=== PATIENT | female | born 1995 | race Caucasian/White ===

== ENCOUNTER 2017-02-15 06:55 | Inpatient (IN) | payer OTHER ==
[2017-02-15] MEDS: RINGER'S SOLUTION,LACTATED 1,000 ML IV PRN ×2 (08:09→09:16)
[2017-02-15] MEDS ORDERED: RINGER'S SOLUTION,LACTATED 1,000 ML IV ONE ×2 (10:10→11:30)
[2017-02-15] MEDS ORDERED: OXYTOCIN 20 UNITS in RINGER'S SOLUTION,LACTATED 1,000 ML IV ONE (10:30)
[2017-02-15] MEDS ORDERED: ceFAZolin SODIUM 3 GM in DEXTROSE 5 % IN WATER 100 ML IV ONE ×2 (10:30)
[2017-02-15] MEDS ORDERED: BISACODYL 10 MG SUPP.RECT RC PRN (11:47)
[2017-02-15] MEDS ORDERED: KETOROLAC TROMETHAMINE 30 MG/ML VIAL IV PRN (11:47)
[2017-02-15] MEDS ORDERED: oxyCODONE HCL/ACETAMINOPHEN 1 TAB TABLET PO PRN (11:47)
[2017-02-15] MEDS ORDERED: SIMETHICONE 80 MG TAB.CHEW PO PRN (11:47)
[2017-02-15] MEDS ORDERED: ONDANSETRON HCL/PF 2 MG/ML VIAL IV PRN (11:47)
[2017-02-15] MEDS ORDERED: SENNOSIDES 8.6 MG TABLET PO PRN (11:47)
--- NOTE | 2017-02-15 11:53 | OR ---
History for MU Definition: * The number of deliveries resulting in a live the patient experienced prior to current hospitalization * The previous delivery of live twins or any live multiple gestation is considered one live event. *If primagravida or nulliparous is documented select zero for the number of previous live births. Live Events: 1
--- NOTE | 2017-02-15 11:53 | OR ---
Operative Report - Dictated Report Narrative: Operative report: 02/15/2017 Preoperative diagnosis: Prior , 39.0 weeks, obesity, bipolar, OCD Postoperative diagnosis: Same Procedure: Repeat low-transverse section with vacuum assistance Surgeon: Marisol Ryan D.O. Upper Marker: OR staff Anesthesia: Spinal IV fluids: 1600 Milliliters Urine output: 70 Milliliters EBL: 400 Milliliters Findings: Normal-appearing uterus, tubes, and ovaries, female in cephalic presentation, Apgars of 8 and 9, 7 lbs. 1 oz. Drains: Beckford catheter to gravity Pathology: None Complications: None Condition: Stable The patient was taken to the operating room with IV fluids running and Beckford catheter in place. She was placed in the dorsal supine position with a leftward tilt. She was prepped and draped in the normal sterile fashion. A Pfannenstiel skin incision was made with the scalpel approximately 2 cm above the pubic symphysis along the prior incision. The subcutaneous tissue was dissected down to the fascia. The fascia was incised in the midline and extended laterally. The superior aspect of the fascia was grasped with Zamzam clamps and the rectus muscles were dissected off the fascia using Coffey scissors and blunt dissection. In a similar fashion, the inferior aspect of the fascia was grasped and the rectus muscles dissected off. The peritoneum was then entered and extended with good visualization of the bowel and bladder. The uterine incision was made in a low-transverse fashion using the scalpel. It was extended laterally in a blunt manner. The infant was found to be cephalic. After applying fundal pressure the did not deliver through the incision. The incision was extended on the uterus with bandage scissors and again fundal pressure was applied without descent. The vacuum was then applied and the head was gently guided through the incision with continued fundal pressure. The vacuum was applied for less than 30 seconds and was immediately released after the head was delivered through the incision. The remainder of the baby was delivered and immediate vigorous crying was noted. The was delivered atraumatically. The cord was clamped and cut. The infant was handed off to the waiting tube operator. Cord blood was then collected. The placenta was then delivered spontaneously. The uterus was cleared of all clots and debris. Uterine incision was reapproximated using 0 Vicryl in a running locked fashion. A second layer of 0 Vicryl was used to imbricate the uterine incision. Hemostasis was obtained. The peritoneum was then reapproximated using 3-0 Monocryl. The rectus muscles were inspected, cautery was used to obtain hemostasis. The fascia was then reapproximated with 0 Vicryl. The subcutaneous tissue was then irrigated. Bovie cautery was used to obtain hemostasis. The subcutaneous tissue was then reapproximated using 3-0 Monocryl. The skin was closed in a subcuticular fashion using 4-0 Monocryl. The incision was found to be hemostatic. Benzoin and Steri-Strips were then applied. Telfa and ABDs bandage was then placed. The patient tolerated the procedure well. Sponge, lap, needle, and instrument counts were correct throughout the entire procedure. The patient was taken to the recovery room in stable condition.
--- NOTE | 2017-02-15 12:28 | OR ---
Anesthesia Procedure Note - Anesthesia Procedure Note Narrative: Vital Signs - Last Taken Temp 36.5 C 02/15/17 11:35 Pulse 82 02/15/17 12:05 Resp 17 02/15/17 12:05 BP 115/52 02/15/17 12:05 Pulse Ox 94 02/15/17 12:05 O2 Oxygen Delivery Method Room Air 02/15/17 12:24 ANESTHESIA PROCEDURE NOTE Date of procedure: 02/15/2017. Time of procedure: 1135. Performed by: Gopi Seth CRNA Hot Die Press Operator: Galina Contreras RN . Preprocedure diagnosis: Status post . Previous . Post procedure diagnosis: Same. Procedure: Bilateral ultrasound-guided tap block Indications: Postoperative analgesia. Findings: Patient supine position. Ultrasound used to locate the fascia between internal oblique and transversus abdominis muscle bilaterally. A total of 20 mL of 0.25% Marcaine with epinephrine 1 2000 was injected per side. A 22- gauge 2 inch Stimuplex needle along with ChloraPrep was utilized. Images retain radiology database. EBL: Minimal. Fluids: N/A. Specimen: N/A. Post procedure condition: The patient tolerated the procedure well. No complications were noted. Thank you for this consultation Gopi Seth CRNA
[2017-02-15] MEDS: IBUPROFEN 800 MG TABLET PO PRN ×2 (12:41→19:03)
[2017-02-15] MEDS: oxyCODONE HCL/ACETAMINOPHEN 1 TAB TABLET PO PRN ×4 (12:41→22:01)
[2017-02-15] MEDS: ENOXAPARIN SODIUM 40 MG/0.4 ML SYRG SC SCH (19:03)
[2017-02-15] MEDS: DOCUSATE SODIUM 100 MG CAPSULE PO SCH (20:04)
[2017-02-16] MEDS: IBUPROFEN 800 MG TABLET PO PRN ×4 (01:08→19:51)
[2017-02-16] MEDS: oxyCODONE HCL/ACETAMINOPHEN 1 TAB TABLET PO PRN ×7 (01:10→22:56)
[2017-02-16] MEDS: DOCUSATE SODIUM 100 MG CAPSULE PO SCH ×3 (07:34→21:22)
[2017-02-16] MEDS: ENOXAPARIN SODIUM 40 MG/0.4 ML SYRG SC SCH (16:51)
--- NOTE | 2017-02-16 22:35 | PN ---
Subjective - Date and Time Seen Date: 02/16/17 Time: 22:34 Objective - Vitals Vitals: Last Vital Signs Temp 36.2 C L 02/16/17 19:00 Pulse 82 02/16/17 19:00 Resp 18 02/16/17 19:00 BP 117/71 02/16/17 19:00 Pulse Ox 95 02/16/17 19:00 Patient denies complaints. Tolerating regular diet. Ambulating without difficulty. Pain well controlled. Lochia wnl. Abdomen - soft, appropriately tender Incision - clean, dry, intact Uterus - firm, at umbilicus -1 No calf tenderness Impression: Post op day #1 s/p repeat section. Plan: Continue routine post-operative/ care Cauti Physician Documentation - Urinary Catheter Management Urethral (Beckford) Date of Insertion: 02/15/17 Time of Insertion: 10:20 Date of Removal: 02/16/17 Time of Removal: 00:20
[2017-02-17] MEDS: IBUPROFEN 800 MG TABLET PO PRN ×3 (07:11→20:04)
[2017-02-17] MEDS: oxyCODONE HCL/ACETAMINOPHEN 1 TAB TABLET PO PRN ×5 (07:11→23:37)
--- NOTE | 2017-02-17 08:40 | PN ---
Subjective - Date and Time Seen Date: 02/17/17 Time: 08:40 Objective - Vitals Vitals: Last Vital Signs Temp 36 C L 02/17/17 07:17 Pulse 71 02/17/17 07:17 Resp 16 02/17/17 07:17 BP 137/81 02/17/17 07:17 Pulse Ox 99 02/17/17 07:17 Patient denies complaints. Ambulating well. Tolerating regular diet. Pain well controlled. Lochia wnl. Abdomen - soft, appropriately tender Incision - clean, dry, intact Uterus - firm, at umbilicus -2 No calf tenderness Impression: Post op day #2 s/p repeat section. Plan: Continue routine post-operative/ care Cauti Physician Documentation - Urinary Catheter Management Urethral (Beckford) Date of Insertion: 02/15/17 Time of Insertion: 10:20 Date of Removal: 02/16/17 Time of Removal: 00:20
[2017-02-17] MEDS: DOCUSATE SODIUM 100 MG CAPSULE PO SCH ×2 (09:36→20:04)
[2017-02-17] MEDS: ENOXAPARIN SODIUM 40 MG/0.4 ML SYRG SC SCH (17:23)
[2017-02-18] MEDS: oxyCODONE HCL/ACETAMINOPHEN 1 TAB TABLET PO PRN (06:59)
[2017-02-18] MEDS: IBUPROFEN 800 MG TABLET PO PRN (06:59)
[2017-02-18 07:50] VITALS: BP 120/69
--- NOTE | 2017-02-18 08:33 | PN ---
Subjective - Date and Time Seen Date: 02/18/17 Time: 08:31 Objective - Vitals Vitals: Last Vital Signs Temp 36.8 C 02/18/17 07:30 Pulse 70 02/18/17 07:30 Resp 20 02/18/17 07:30 BP 120/69 02/18/17 07:30 Pulse Ox 99 02/18/17 07:30 Patient denies complaints. Ambulating without difficulty. Tolerating regular diet. Pain well controlled. Lochia wnl. Abdomen - soft, appropriately tender Incision - clean, dry, intact Uterus - firm, at umbilicus -3 No calf tenderness Impression: Post op day #3 s/p repeat section. Bipolar disorder- stable. Depression-stable. Plan: Routine discharge instructions. Continue psych meds as directed. Cauti Physician Documentation - Urinary Catheter Management Urethral (Beckford) Date of Insertion: 02/15/17 Time of Insertion: 10:20 Date of Removal: 02/16/17 Time of Removal: 00:20
[2017-02-18] MEDS: DOCUSATE SODIUM 100 MG CAPSULE PO SCH (09:10)
== END 2017-02-18 10:05 | disposition home or self-care (01) | DRG 766 ==
LOC: OB 06:55
PROVIDERS: ADMIT Obstetrics & Gynecology Gynecologic Oncology; ATTEND Obstetrics & Gynecology Gynecologic Oncology
PROC: 4A1HXCZ Monitoring of Products of Conception, Cardiac Rate, External Approach (ICD-10-PCS; 2017-02-15)
PROC: 10D00Z1 Extraction of Products of Conception, Low, Open Approach (ICD-10-PCS; principal; 2017-02-15 10:00)
DX: O99.824 Streptococcus B carrier state complicating childbirth (principal); O34.211 Maternal care for low transverse scar from previous cesarean delivery; F91.9 Conduct disorder, unspecified; F31.9 Bipolar disorder, unspecified; Z3A.40 40 weeks gestation of pregnancy; Z37.0 Single live birth